=== PATIENT | male | born 1980 | race Caucasian/White ===

== ENCOUNTER → 2016-11-14 | Outpatient (CLI) | payer OTHER ==
--- NOTE | ~2016-11-14 | CR63 ---
[facility] A Service of [facility] & [facility] RADIOLOGY TEXT RESULTS PATIENT: TRACE CARR LOCATION: [facility] : [birth year] UNIT #: [id number] AGE: [address]: KATRIN Bobo APRN SEX: M ORDER DR: [id number] [facility] [address] [place], [place] [address] [id number] O MR#: [id number] Acc #: [id number] NAME: TRACE CARR : 1980 SEX: M STUDY DATE/TIME: 11/14/2016 12:47 UNIT: [facility] ROOM: STUDY DESCRIPTION: CR Chest 2 View Attending Physician: Katrin Keating Aprn Ordering Physician: Katrin Keating Aprn MEDICAL IMAGING REPORT This report is preliminary unless electronic signature is present EXAM Chest 11/14/2016 HISTORY 35-year-old male patient bilateral knee pain x1 year, short of air x1 month. Smoker. COMPARISON Chest none. FINDINGS Two-view chest demonstrates normal cardiac size and configuration. Hilar structures and mediastinal contours are preserved. Pericardial fat pad noted along the left cardiac border. Bilateral lungs are expanded and clear and costophrenic angles are preserved. IMPRESSION Negative chest Dictated by... Robert Tijerina M.D. THIS IS AN ELECTRONICALLY VERIFIED REPORT Robert Tijerina M.D. at 11/15/2016 8:09 AM PAUL/paulo TD: 11/14/2016 15:31 JOB #: [id number] MEDICAL IMAGING REPORT Page 1 of 1 COPY
--- NOTE | ~2016-11-14 | CR170 ---
[facility] A Service of [facility] & [facility] RADIOLOGY TEXT RESULTS PATIENT: TRACE CARR LOCATION: [facility] : 80 UNIT #: [id number] AGE: [address]: KATRIN Bobo APRN SEX: M ORDER DR: [id number] [facility] [address] [place] [address] [place], [place] [address] [id number] O MR#: [id number] Acc #: [id number] NAME: TRACE CARR : 1980 SEX: M STUDY DATE/TIME: 11/14/2016 12:47 UNIT: [facility] ROOM: STUDY DESCRIPTION: CR Knee 2 Views Rt Attending Physician: Katrin Keating Aprn Ordering Physician: Katrin Keating Aprn MEDICAL IMAGING REPORT This report is preliminary unless electronic signature is present EXAM Right knee, 11/14/2016, [facility]. HISTORY 35-year-old male patient; bilateral knee pain x1 year. COMPARISON Left knee images, same date. FINDINGS AP and lateral cross-table views of the right knee demonstrate preservation of the joint space. I see no loose body or joint effusion. Mineralization is preserved. Cortex intact. Soft tissues appear normal. IMPRESSION Negative right knee. Dictated by... Robert Tijerina M.D. THIS IS AN ELECTRONICALLY VERIFIED REPORT Robert Tijerina M.D. at 11/15/2016 8:09 AM Tanvir TD: 11/14/2016 18:14 JOB #: [id number] MEDICAL IMAGING REPORT Page 1 of 1 COPY
--- NOTE | ~2016-11-14 | CR169 ---
[facility] A Service of [facility] & [facility] RADIOLOGY TEXT RESULTS PATIENT: TRACE CARR LOCATION: [facility] : 80 UNIT #: [id number] AGE: [address]: KATRIN Bobo APRN SEX: M ORDER DR: [id number] [facility] [address] [place], [place] [address] [id number] O MR#: [id number] Acc #: [id number] NAME: TRACE CARR : 1980 SEX: M STUDY DATE/TIME: 11/14/2016 12:02 UNIT: [facility] ROOM: STUDY DESCRIPTION: CR Knee 2 Views Lt Attending Physician: Katrin Keating Aprn Ordering Physician: Katrin Keating Aprn MEDICAL IMAGING REPORT This report is preliminary unless electronic signature is present EXAM Left knee, 11/14/2016; [facility]. HISTORY 35-year-old male patient pain bilateral knees x1 year. FINDINGS AP and lateral views of the left knee demonstrate preservation of the joint space. There are no loose bodies and no joint effusion. Mineralization is preserved and cortex intact. Soft tissues are normal. IMPRESSION Negative left knee. Dictated by... Robert Tijerina M.D. THIS IS AN ELECTRONICALLY VERIFIED REPORT Robert Tijerina M.D. at 11/15/2016 8:09 AM PAUL/katelynn TD: 11/14/2016 17:43 JOB #: [id number] MEDICAL IMAGING REPORT Page 1 of 1 COPY
== END | disposition home or self-care (01) ==
LOC: CRAD 11:50
DX: M25.561 Pain in right knee (principal); M25.562 Pain in left knee; F17.210 Nicotine dependence, cigarettes, uncomplicated
CPT/HCPCS: 71020; 73560